=== PATIENT | male | born 1945 | race African-American/Black ===

== ENCOUNTER 2023-06-29 16:51 | Emergency (ER) | payer OTHER, MEDICARE ==
[2023-06-29] MEDS ORDERED: Acetaminophen 500 MG TAB ONE (18:18)
== END 2023-06-29 19:00 | disposition home or self-care (01) ==
LOC: ERS 16:51
DX: S20.219A Contusion of unspecified front wall of thorax, initial encounter (principal); I11.0 Hypertensive heart disease with heart failure; I50.9 Heart failure, unspecified; V89.2XXA Person injured in unspecified motor-vehicle accident, traffic, initial encounter
CPT/HCPCS: 71045; 93005

== ENCOUNTER 2023-07-01 10:19 | Emergency (ER) | payer MEDICARE, OTHER ==
[2023-07-01 13:16] LABS: #Eosinphils 0.2 thou/uL (0.0-0.7); #Monocytes 0.8 thou/uL (0.11-0.59); #Neutrophils 6.2 thou/uL (1.40-6.50); %Basophils 0.2 % (0.0-1.0); %Eosinophils 2.5 % (0.0-10.0); %Lymphocytes 10.3 % (21.0-51.0); %Monocytes 10.3 % (0.0-10.0); %Neutrophils 76.3 % (42.0-75.0); Hematocrit 44.6 % (42.0-52.0); Hemoglobin 13.9 g/dL (14.0-18.0); Mean Corpuscular HGB CONC 31.2 g/dL (32.0-36.0); Mean Corpuscular Hemoglobin 27.7 pg (27.0-31.0); Mean Corpuscular Volume 88.8 fl (78.0-98.0); Mean Platelet Volume 10.4 fL (7.4-10.4); Platelet Count 159 10x3/uL (130-400); RBC Distribution Width 13.8 % (11.5-14.5); Red Blood Cell (RBC) Count 5.02 mill/uL (4.70-6.10); White Blood Cell (WBC) Count 8.1 10x3/uL (4.8-10.8)
[2023-07-01] MEDS ORDERED: Ibuprofen 200 MG TAB ONE (13:24)
[2023-07-01] MEDS ORDERED: HYDROcodone/Acetaminophen 5/325 mg Tablet ONE (13:24)
[2023-07-01 13:40] LABS: ALT (SGPT) 22 U/L (8-55); AST (SGOT) 21 U/L (5-34); Albumin 3.9 g/dL (3.4-4.8); Alkaline Phosphatase 59 U/L (40-110); Anion Gap 14 mmol/L (10-20); BUN (Urea Nitrogen) 19 mg/dL (8.4-25.7); Bilirubin, Total 0.7 mg/dL (0.2-1.2); Calc. Creatinine Clearance 0 mL/min (70-130); Carbon Dioxide 22 mmol/L (23-31); Chloride 104 mmol/L (98-107); Estimated GFR 29; Globulin 2.9 g/dL (2.4-3.5); Glucose 95 mg/dL (83-110); Potassium 3.9 mmol/L (3.5-5.1); Protein, Total 6.8 g/dL (5.8-8.1); Sodium 136 mmol/L (136-145)
[2023-07-01] MEDS ORDERED: hydrALAZINE 20 MG/ML VIAL ONE (13:40)
[2023-07-01 14:02] LABS: CKMB 1.2 ng/mL (0-6.6)
== END 2023-07-01 19:04 ==
LOC: ERS 10:19
DX: S20.211A Contusion of right front wall of thorax, initial encounter (principal); R62.7 Adult failure to thrive; I11.0 Hypertensive heart disease with heart failure; I50.9 Heart failure, unspecified; V89.2XXA Person injured in unspecified motor-vehicle accident, traffic, initial encounter
CPT/HCPCS: 71045; 80053; 82553; 84484; 85025; 93005; 96374; 99285; J0360; 36415

== ENCOUNTER 2023-07-13 23:16 | Observation (INO) | payer MEDICARE, SELFPAY ==
[2023-07-13 23:59] LABS: #Eosinphils 0.1 thou/uL (0.0-0.7); #Monocytes 0.7 thou/uL (0.11-0.59); #Neutrophils 6.9 thou/uL (1.40-6.50); %Basophils 0.2 % (0.0-1.0); %Eosinophils 1.5 % (0.0-10.0); %Lymphocytes 8.9 % (21.0-51.0); %Monocytes 8.6 % (0.0-10.0); %Neutrophils 80.1 % (42.0-75.0); Hematocrit 42.3 % (42.0-52.0); Hemoglobin 13.6 g/dL (14.0-18.0); Mean Corpuscular HGB CONC 32.2 g/dL (32.0-36.0); Mean Corpuscular Hemoglobin 27.5 pg (27.0-31.0); Mean Corpuscular Volume 85.6 fl (78.0-98.0); Mean Platelet Volume 9.5 fL (7.4-10.4); Platelet Count 301 10x3/uL (130-400); RBC Distribution Width 13.3 % (11.5-14.5); Red Blood Cell (RBC) Count 4.94 mill/uL (4.70-6.10); White Blood Cell (WBC) Count 8.7 10x3/uL (4.8-10.8)
[2023-07-14 00:21] LABS: ALT (SGPT) 18 U/L (8-55); AST (SGOT) 14 U/L (5-34); Albumin 4.1 g/dL (3.4-4.8); Alkaline Phosphatase 115 U/L (40-110); Anion Gap 16 mmol/L (10-20); BUN (Urea Nitrogen) 53 mg/dL (8.4-25.7); Bilirubin, Total 0.6 mg/dL (0.2-1.2); Calc. Creatinine Clearance 0 mL/min (70-130); Calcium 9.8 mg/dL (7.8-10.44); Carbon Dioxide 19 mmol/L (23-31); Chloride 103 mmol/L (98-107); Estimated GFR 23; Globulin 3.3 g/dL (2.4-3.5); Glucose 112 mg/dL (83-110); Potassium 4.6 mmol/L (3.5-5.1); Protein, Total 7.4 g/dL (5.8-8.1); Sodium 133 mmol/L (136-145)
[2023-07-14 00:26] LABS: Troponin I 0.029 ng/mL (< 0.028)
[2023-07-14] MEDS ORDERED: Ondansetron PF 4 MG/2 ML Vial IVP PRN (03:28)
[2023-07-14] MEDS ORDERED: Acetaminophen 650 MG Suppository PR PRN (03:28)
[2023-07-14] MEDS ORDERED: Acetaminophen 325 MG TAB PO PRN (03:28)
[2023-07-14] MEDS ORDERED: Ondansetron ODT 4 MG TAB PO PRN (03:28)
[2023-07-14 03:32] LABS: Troponin I 0.025 ng/mL (< 0.028)
[2023-07-14 04:27] VITALS: BMI 23.3
[2023-07-14] MEDS: Sodium Chloride 0.9% 1,000 ML IV SCH ×2 (04:33→12:54)
[2023-07-14 05:55] LABS: #Eosinphils 0.2 thou/uL (0.0-0.7); #Monocytes 0.6 thou/uL (0.11-0.59); #Neutrophils 5.8 thou/uL (1.40-6.50); %Basophils 0.3 % (0.0-1.0); %Eosinophils 2.4 % (0.0-10.0); %Lymphocytes 14.5 % (21.0-51.0); %Monocytes 8.2 % (0.0-10.0); %Neutrophils 73.7 % (42.0-75.0); Hematocrit 46.1 % (42.0-52.0); Hemoglobin 14.2 g/dL (14.0-18.0); Mean Corpuscular HGB CONC 30.8 g/dL (32.0-36.0); Mean Corpuscular Hemoglobin 27.6 pg (27.0-31.0); Mean Platelet Volume 10.5 fL (7.4-10.4); Platelet Count 231 10x3/uL (130-400); RBC Distribution Width 13.4 % (11.5-14.5); Red Blood Cell (RBC) Count 5.15 mill/uL (4.70-6.10); White Blood Cell (WBC) Count 7.8 10x3/uL (4.8-10.8)
[2023-07-14 05:57] LABS: Mean Corpuscular Volume 89.5 fl (78.0-98.0)
[2023-07-14 06:16] LABS: Troponin I 0.033 ng/mL (< 0.028)
[2023-07-14 07:05] LABS: Anion Gap 19 mmol/L (10-20); BUN (Urea Nitrogen) 53 mg/dL (8.4-25.7); Calc. Creatinine Clearance 24 mL/min (70-130); Calcium 9.2 mg/dL (7.8-10.44); Carbon Dioxide 13 mmol/L (23-31); Chloride 106 mmol/L (98-107); Estimated GFR 24; Glucose 94 mg/dL (83-110); Potassium 4.8 mmol/L (3.5-5.1); Sodium 133 mmol/L (136-145)
[2023-07-14] MEDS ORDERED: Loratadine 10 MG TAB PO PRN (09:14)
[2023-07-14] MEDS ORDERED: hydrALAZINE 25 MG TAB PO SCH (15:00)
[2023-07-14 16:28] VITALS: BP 134/53; TEMP 98.5
[2023-07-14] MEDS ORDERED: Atorvastatin Calcium 10 MG TAB PO SCH (21:00)
[2023-07-15] MEDS ORDERED: Tamsulosin HCl 0.4 MG CAP PO SCH (09:00)
[2023-07-15] MEDS ORDERED: Aspirin 81 mg Enteric Coated Tablet PO SCH (09:00)
[2023-07-15] MEDS ORDERED: Amlodipine 10 MG TAB PO SCH (09:00)
[2023-07-15] MEDS ORDERED: Finasteride 5 MG TAB PO SCH (09:00)
== END 2023-07-14 18:19 | disposition home or self-care (01) ==
LOC: ERS 23:16 → 2SE 07-14 02:48
PROVIDERS: ADMIT Student in an Organized Health Care Education/Training Program; ATTEND Hospitalist
DX: N17.9 Acute kidney failure, unspecified (principal); I13.0 Hypertensive heart and chronic kidney disease with heart failure and stage 1 through stage 4 chronic kidney disease, or unspecified chronic kidney disease; I50.9 Heart failure, unspecified; N18.32 Chronic kidney disease, stage 3b; Z86.73 Personal history of transient ischemic attack (TIA), and cerebral infarction without residual deficits; Z79.82 Long term (current) use of aspirin; Z79.899 Other long term (current) drug therapy; Z96.642 Presence of left artificial hip joint
CPT/HCPCS: 36415; 71045; 80048; 80053; 83880; 84484; 85025; 93005; G0378; J7050

== ENCOUNTER 2024-05-08 19:22 | Inpatient (IN) | payer MEDICARE, OTHER ==
[2024-05-08] MEDS ORDERED: Acetaminophen 500 MG TAB ONE (20:05)
[2024-05-08 20:30] LABS: Hematocrit 39.8 % (42.0-52.0); Hemoglobin 13.1 g/dL (14.0-18.0); Mean Corpuscular HGB CONC 32.9 g/dL (32.0-36.0); Mean Corpuscular Hemoglobin 28.4 pg (27.0-31.0); Mean Corpuscular Volume 86.3 fL (78.0-98.0); Mean Platelet Volume 9.8 fL (7.4-10.4); Platelet Count 188 10x3/uL (130-400); RBC Distribution Width 13.8 % (11.5-14.5); Red Blood Cell (RBC) Count 4.61 mill/uL (4.70-6.10)
[2024-05-08 20:42] LABS: INR-International Normal Ratio 1.4; Prothrombin Time 17.5 sec (12.0-14.7)
[2024-05-08 20:43] LABS: PTT 42.5 sec (22.9-36.1)
[2024-05-08 20:44] LABS: ALT (SGPT) 13 U/L (8-55); AST (SGOT) 11 U/L (5-34); Albumin 2.6 g/dL (3.4-4.8); Alkaline Phosphatase 72 U/L (40-110); Anion Gap 19 mmol/L (10-20); BUN (Urea Nitrogen) 26 mg/dL (8.4-25.7); Bilirubin, Total 0.6 mg/dL (0.2-1.2); Calc. Creatinine Clearance 0 mL/min (70-130); Calcium 8.7 mg/dL (7.8-10.44); Carbon Dioxide 19 mmol/L (23-31); Chloride 105 mmol/L (98-107); Estimated GFR 42; Globulin 3.7 g/dL (2.4-3.5); Glucose 94 mg/dL (83-110); Potassium 3.6 mmol/L (3.5-5.1); Protein, Total 6.3 g/dL (5.8-8.1); Sodium 139 mmol/L (136-145)
[2024-05-08 20:52] LABS: Band 28 % (5-11); Burr Cells MODERATE= 6-15 cells HPF (0-1); Dohle Bodies SLIGHT; Lymphocytes 1 % (21-51); Metamyelocyte 4 % (0-0); Neutrophil 67 % (42-75); Platelet Adequacy Comment Platelets Normal; Polychromasia SLIGHT = 2-3 cells HPF (0-2); Vacuoles SLIGHT
[2024-05-08] MEDS ORDERED: Sodium Chloride 0.9% 100 ML ONE (22:21)
[2024-05-08] MEDS ORDERED: Cefepime 2 GM VIAL ONE (22:21)
[2024-05-09 00:38] LABS: Influenza A by NAA Not Detected (NotDetected); Influenza B by NAA Not Detected (NotDetected); SARS-CoV-2 NAA Rapid Test Not Detected (NotDetected)
[2024-05-09 00:39] LABS: Bacteria/HPF 4+ HPF (None Seen); Bilirubin Negative (Negative); Blood, Urine Trace (Negative); CAUTI Indications for Culture Acute Hematuria; Clarity Turbid (Clear); Glucose, Urine (Dipstick) Normal (Negative); Ketone, Urine Negative (Negative); Leukocyte 500 Leu/uL (Negative); Nitrite 2+ (Negative); Protein, Urine (Dipstick) 70 mg/dL (Neg-Trace); RBC/HPF 0-3 HPF (0-3); Specific Gravity, Urine 1.018 (1.002-1.036); Squamous Epithelial 0-3 HPF (0-3); Urobilinogen Normal mg/dL (Less than 2); WBC/HPF Greater than 50 HPF (0-3); pH, Urine 5.5 (5.0-9.0)
[2024-05-09] MEDS ORDERED: Acetaminophen 325 MG TAB PO PRN (00:40)
[2024-05-09] MEDS ORDERED: Ondansetron ODT 4 MG TAB PO PRN (00:40)
[2024-05-09 00:42] LABS: Urine Culture Reflex Yes Yes
[2024-05-09] MEDS ORDERED: Acetaminophen 325 MG TAB ONE (04:06)
[2024-05-09] MEDS ORDERED: Azithromycin 250 MG TAB ONE (07:53)
[2024-05-09 08:12] LABS: Lactic Acid 1.7 mmol/L (0.5-2.2)
[2024-05-09] MEDS ORDERED: Enoxaparin 40 MG (0.4 mL) SYRINGE ONE (08:51)
[2024-05-09 09:21] VITALS: BMI 26.0
[2024-05-09] MEDS: Enoxaparin 40 MG (0.4 mL) SYRINGE SC SCH (09:21)
[2024-05-09] MEDS: Azithromycin 250 MG TAB PO SCH (09:21)
[2024-05-09] MEDS ORDERED: Aspirin 81 mg Enteric Coated Tablet ONE (09:30)
[2024-05-09] MEDS ORDERED: hydrALAZINE 25 MG TAB ONE (09:31)
[2024-05-09] MEDS ORDERED: guaiFENesin ER 600 MG TAB ONE (09:31)
[2024-05-09] MEDS ORDERED: Tamsulosin HCl 0.4 MG CAP ONE (09:31)
[2024-05-09] MEDS ORDERED: Pantoprazole DR 40 MG TAB ONE (09:31)
[2024-05-09] MEDS ORDERED: Amlodipine 5 MG TAB ONE (09:34)
[2024-05-09] MEDS: Vancomycin (BATCH) 1.5 GM in Premix 1 BAG IVPB SCH (10:28)
[2024-05-09] MEDS: guaiFENesin ER 600 MG TAB PO SCH (10:28)
[2024-05-09] MEDS: Tamsulosin HCl 0.4 MG CAP PO SCH (10:29)
[2024-05-09] MEDS: Finasteride 5 MG TAB PO SCH (10:29)
[2024-05-09 10:31] LABS: Hematocrit 37.1 % (42.0-52.0); Hemoglobin 11.8 g/dL (14.0-18.0); Mean Corpuscular HGB CONC 31.8 g/dL (32.0-36.0); Mean Corpuscular Hemoglobin 28.1 pg (27.0-31.0); Mean Corpuscular Volume 88.3 fL (78.0-98.0); Mean Platelet Volume 10.3 fL (7.4-10.4); Platelet Count 182 10x3/uL (130-400); RBC Distribution Width 13.7 % (11.5-14.5)
[2024-05-09 10:42] LABS: Anion Gap 15 mmol/L (10-20); BUN (Urea Nitrogen) 27 mg/dL (8.4-25.7); Calc. Creatinine Clearance 47 mL/min (70-130); Calcium 8.5 mg/dL (7.8-10.44); Carbon Dioxide 19 mmol/L (23-31); Chloride 108 mmol/L (98-107); Estimated GFR 48; Glucose 94 mg/dL (83-110); Potassium 3.6 mmol/L (3.5-5.1); Sodium 138 mmol/L (136-145)
[2024-05-09 12:15] LABS: Band 13 % (5-11); Burr Cells SLIGHT = 2-5 cells HPF (0-1); Lymphocytes 4 % (21-51); Neutrophil 83 % (42-75); Platelet Adequacy Comment Platelets Normal; Poikilocytosis SLIGHT = 6-15 cells HPF (0-5)
[2024-05-09] MEDS: cefTRIAXone\\ROCEPHIN 1 GM in Sodium Chloride 0.9% 100 ML IVPB SCH (14:01)
[2024-05-09] MEDS: hydrALAZINE 25 MG TAB PO SCH (16:17)
[2024-05-09] MEDS: guaiFENesin ER 600 MG TAB PO PRN (16:17)
[2024-05-09] MEDS: Vancomycin (BATCH) 1.25 GM in Premix 1 BAG IVPB SCH (21:22)
[2024-05-10] MEDS: Benzonatate 100 MG CAP PO PRN (00:28)
[2024-05-10 04:51] LABS: #Basophils Less than 0.03 10x3/uL (0.0-0.2); %Basophils 0.2 % (0.0-1.0); %Eosinophils 0.2 % (0.0-10.0); %Lymphocytes 3.4 % (21.0-51.0); %Monocytes 2.9 % (0.0-10.0); %Neutrophils 92.6 % (42.0-75.0); Hematocrit 35.7 % (42.0-52.0); Hemoglobin 11.5 g/dL (14.0-18.0); Mean Corpuscular HGB CONC 32.2 g/dL (32.0-36.0); Mean Corpuscular Hemoglobin 27.6 pg (27.0-31.0); Mean Corpuscular Volume 85.8 fL (78.0-98.0); Mean Platelet Volume 10.5 fL (7.4-10.4); Platelet Count 195 10x3/uL (130-400); RBC Distribution Width 13.4 % (11.5-14.5); Red Blood Cell (RBC) Count 4.16 mill/uL (4.70-6.10)
[2024-05-10 05:37] LABS: Vancomycin, Random 21.1 ug/mL (See Comment)
[2024-05-10 05:40] LABS: Anion Gap 13 mmol/L (10-20); BUN (Urea Nitrogen) 26 mg/dL (8.4-25.7); Calc. Creatinine Clearance 48 mL/min (70-130); Calcium 8.7 mg/dL (7.8-10.44); Carbon Dioxide 18 mmol/L (23-31); Chloride 109 mmol/L (98-107); Estimated GFR 49; Glucose 84 mg/dL (83-110); Potassium 3.2 mmol/L (3.5-5.1); Sodium 137 mmol/L (136-145)
[2024-05-10] MEDS: Aspirin 81 mg Enteric Coated Tablet PO SCH (10:03)
[2024-05-10] MEDS: Atorvastatin Calcium 10 MG TAB PO SCH (10:04)
[2024-05-10] MEDS: Amlodipine 10 MG TAB PO SCH (10:04)
[2024-05-10] MEDS: Pantoprazole DR 40 MG TAB PO SCH (10:04)
[2024-05-10] MEDS: Potassium Chloride 20 MEQ TAB PO SCH (13:20)
[2024-05-11 05:01] LABS: #Basophils Less than 0.03 10x3/uL (0.0-0.2); %Basophils 0.2 % (0.0-1.0); %Eosinophils 1.3 % (0.0-10.0); %Lymphocytes 8.3 % (21.0-51.0); %Monocytes 6.4 % (0.0-10.0); %Neutrophils 82.7 % (42.0-75.0); Hematocrit 37.1 % (42.0-52.0); Hemoglobin 12.1 g/dL (14.0-18.0); Mean Corpuscular HGB CONC 32.6 g/dL (32.0-36.0); Mean Corpuscular Hemoglobin 27.8 pg (27.0-31.0); Mean Corpuscular Volume 85.1 fL (78.0-98.0); Mean Platelet Volume 10.3 fL (7.4-10.4); Platelet Count 220 10x3/uL (130-400); RBC Distribution Width 13.6 % (11.5-14.5); Red Blood Cell (RBC) Count 4.36 mill/uL (4.70-6.10)
[2024-05-11 05:15] LABS: Anion Gap 16 mmol/L (10-20); BUN (Urea Nitrogen) 24 mg/dL (8.4-25.7); Calc. Creatinine Clearance 53 mL/min (70-130); Calcium 8.6 mg/dL (7.8-10.44); Carbon Dioxide 17 mmol/L (23-31); Chloride 110 mmol/L (98-107); Estimated GFR 54; Glucose 92 mg/dL (83-110); Potassium 3.5 mmol/L (3.5-5.1); Sodium 139 mmol/L (136-145)
[2024-05-11] MEDS: Losartan 25 MG TAB PO SCH (13:53)
[2024-05-12 04:58] LABS: #Basophils Less than 0.03 10x3/uL (0.0-0.2); %Basophils 0.2 % (0.0-1.0); %Eosinophils 2.7 % (0.0-10.0); %Monocytes 10.4 % (0.0-10.0); Hematocrit 37.7 % (42.0-52.0); Hemoglobin 12.1 g/dL (14.0-18.0); Mean Corpuscular HGB CONC 32.1 g/dL (32.0-36.0); Mean Corpuscular Hemoglobin 27.6 pg (27.0-31.0); Mean Corpuscular Volume 86.1 fL (78.0-98.0); Mean Platelet Volume 10.5 fL (7.4-10.4); Platelet Count 227 10x3/uL (130-400); RBC Distribution Width 13.8 % (11.5-14.5); Red Blood Cell (RBC) Count 4.38 mill/uL (4.70-6.10)
[2024-05-12 05:34] LABS: Anion Gap 14 mmol/L (10-20); BUN (Urea Nitrogen) 21 mg/dL (8.4-25.7); Calc. Creatinine Clearance 46 mL/min (70-130); Calcium 8.4 mg/dL (7.8-10.44); Carbon Dioxide 19 mmol/L (23-31); Chloride 107 mmol/L (98-107); Estimated GFR 47; Glucose 86 mg/dL (83-110); Potassium 3.5 mmol/L (3.5-5.1); Sodium 136 mmol/L (136-145)
[2024-05-12 05:53] LABS: Vancomycin, Random 29.6 ug/mL (See Comment)
[2024-05-12] MEDS: Losartan 25 MG TAB PO SCH (08:30)
[2024-05-12] MEDS ORDERED: Losartan 25 MG TAB PO SCH (09:00)
[2024-05-12 16:08] VITALS: BP 152/73; TEMP 98.5
[2024-05-12] MEDS ORDERED: Vancomycin 1 GM in Premix 1 BAG IVPB SCH (21:00)
== END 2024-05-12 21:55 | disposition home or self-care (01) | DRG 871 ==
LOC: ERS 19:22 → ERHOLD 05-09 00:06 → 2NO 05-09 11:56
PROVIDERS: ADMIT Family Medicine; ATTEND Family Medicine
DX: A41.01 Sepsis due to Methicillin susceptible Staphylococcus aureus (principal); J18.9 Pneumonia, unspecified organism; I69.951 Hemiplegia and hemiparesis following unspecified cerebrovascular disease affecting right dominant side; I50.22 Chronic systolic (congestive) heart failure; I13.0 Hypertensive heart and chronic kidney disease with heart failure and stage 1 through stage 4 chronic kidney disease, or unspecified chronic kidney disease; E87.20 Acidosis, unspecified; K92.1 Melena; Z96.652 Presence of left artificial knee joint; E78.5 Hyperlipidemia, unspecified; R19.7 Diarrhea, unspecified; I16.0 Hypertensive urgency; N18.32 Chronic kidney disease, stage 3b; I25.2 Old myocardial infarction; Z87.891 Personal history of nicotine dependence
CPT/HCPCS: 36415; 71045; 74176; 80048; 80053; 80202; 81001; 82274; 83605; 83880; 84145; 85025; 85610; 85730; 86850; 86900; 86901; 87040; 87077; 87086; 87149; 87186; 87324; 87449; 93005; 96361; 96365; 96375; J0692; J0696; J1650; J3370; J3490